=== PATIENT | female | born 1965 | race Caucasian/White ===

== ENCOUNTER 2017-06-12 14:20 | Outpatient (CLI) | payer BC ==
[~2017-06-12 14:20] MED LIST: ISOVUE-370 76%-LOCM 1 ML ONE
== END 2017-06-12 14:21 | disposition home or self-care (01) ==
LOC: BICCT 14:20
PROVIDERS: ATTEND Internal Medicine Hematology & Oncology
DX: C7A.090 Malignant carcinoid tumor of the bronchus and lung (principal); K76.0 Fatty (change of) liver, not elsewhere classified; Z98.890 Other specified postprocedural states
CPT/HCPCS: 71260

== ENCOUNTER 2017-06-21 12:24 | Day surgery (SDC) | payer BC ==
[2017-06-20 10:57] VITALS: BMI 32.5
[~2017-06-21 12:24] MED LIST changes: -ISOVUE-370 76%-LOCM 1 ML ONE; +Lidocaine 1% PF 5 ML VIAL ONE; +Propofol 200 MG/20 ML VIAL ONE
[2017-06-21] MEDS ORDERED: OCTREOTIDE ACETATE IVPB SCH (14:30)
[2017-06-21] MEDS ORDERED: SODIUM CHLORIDE 0.9% IVPB SCH (14:30)
--- NOTE | 2017-06-21 18:43 | OP ---
DATE OF PROCEDURE: 06/21/2017 TITLE OF PROCEDURE: Colonoscopy with biopsy. PREOPERATIVE DIAGNOSES: 1. Colon cancer screening. 2. Intermittent unexplained diarrhea. 3. History of carcinoid of the lung, resected in 2010. POSTOPERATIVE DIAGNOSES: 1. Exam to distal terminal ileum; adequate bowel preparation. 2. Grossly normal terminal ileum. 3. Grossly normal colonic mucosa without overt colitis, biopsied in the transverse colon for histolo gy. 4. Mild sigmoid diverticulosis. 5. Small internal hemorrhoids. 6. Otherwise normal colonoscopy. PROCEDURE IN DETAIL: Written informed consent was obtained. Upon completion of the EGD, the patient was repositioned for the colonoscopy. A digital rectal exam was performed that was unremarkable. A Pentax video colonoscope was inserted through the anal canal and advanced under direct visualization to the cecum. Position in the cecum was verified by clear identification of the ileocecal valve. T he quality of the bowel preparation was adequate. Each colon segment was examined carefully as the c olonoscope was slowly withdrawn from the cecum. The distal terminal ileum appeared normal. The ileo cecal valve, appendiceal orifice and cecum were also normal. No overt colitis was identified. Close inspection was made of the colonic mucosa as the instrument was slowly withdrawn from the cecum. Ra ndom biopsies were obtained in the transverse colon to evaluate for possible microscopic colitis. A retroflexed exam in the rectum demonstrated small internal hemorrhoids that were not actively bleedin g. Additional findings included occasional diverticular orifices in the sigmoid colon that were neit her bleeding nor did they appear infected. The colon was decompressed as the colonoscope was withdra wn from the patient. She was transferred to the day stay surgery area for post-procedure monitoring. There were no immediate complications. RECOMMENDATIONS: 1. Await biopsy results. 2. Ask the patient to call me in 1 week for biopsy results. 3. Follow up with my PA in 4 weeks. 4. Colon cancer screening, given the patient's history, would repeat another colonoscopy in five yea rs. 5. Consider a trial of Imodium 1-2 tablets daily as needed for diarrhea.
--- NOTE | 2017-06-21 19:17 | OP ---
DATE OF PROCEDURE: 06/21/2017 TITLE OF PROCEDURE: Esophagogastroduodenoscopy with biopsy. PREPROCEDURE DIAGNOSES: 1. Left-sided abdominal pain. 2. History of carcinoid of the lung, resected in 2010. 3. Left-sided abdominal pain. POSTPROCEDURE DIAGNOSES: 1. Examination to second portion of duodenum. 2. Small 2 cm sliding hiatal hernia. 3. Otherwise grossly normal appearing esophagus, biopsied lower esophageal mucosa for histology. 4. Mild body gastritis, biopsied. 5. Small scattered sessile polyps in the proximal gastric body, most consistent with benign fundic p olyps, biopsied. 6. Normal duodenum. PROCEDURE IN DETAIL: Written informed consent was obtained. The patient was brought to the endoscop y suite. Total intravenous anesthesia was provided by Dr. Pollack and associates. The patient was pl aced in the left lateral decubitus position. An infusion of Sandostatin 250 mcg was initiated just b efore the start of the procedure and infused slowly over the subsequent 45 minutes. A bite block was inserted into the mouth. A Pentax video diagnostic gastroscope was introduced into the oral cavity and the esophagus was carefully intubated. The gastroscope was advanced under direct visualization t o the second portion of the duodenum. Endoscopic findings revealed a small sliding hiatal hernia abo ut 2 cm in length. The esophageal mucosa proximal to the hiatal hernia appeared grossly normal. Bio psies were obtained for histology at 33 cm. There was no evidence of acute esophageal ulcer or erosi on. The stomach was entered and carefully examined. This included a retroflexed view of the cardia and fundus. The retroflexed exam again demonstrated the small hiatal hernia. The gastric body demon strated mucosal changes consistent with a mild gastritis with a striped erythema and scattered small sessile polyps in the proximal body. The size of the polyps varied from 2 mm to 4 mm. Biopsies were obtained for histology. The polyps were not removed. The endoscopic appearance was consistent with benign fundic polyps. The remainder of the exam of the stomach was unremarkable. The duodenum from the bulb to the second portion was also carefully inspected and appeared normal with grossly normal motility. The stomach was decompressed as the gastroscope was completely removed from the patient. There were no immediate complications. She was repositioned for the colonoscopy. RECOMMENDATIONS: 1. Await biopsy results. 2. Ask the patient to call me in 1 week for biopsy results. 3. Follow up with Gastroenterology in 4 weeks. 4. Await pathology results. 5. May advise the patient to change her ranitidine to a stronger acid suppressive therapy pending pa thology results. 6. May also ask the patient to stop aspirin for a period of 6-8 weeks pending pathology results.
== END 2017-06-21 16:35 | disposition home or self-care (01) ==
LOC: SDC 12:24
PROVIDERS: ATTEND Internal Medicine Gastroenterology
PROC: 0DB68ZX Excision of Stomach, Via Natural or Artificial Opening Endoscopic, Diagnostic (ICD-10-PCS; principal; 2017-06-21)
PROC: 0DB58ZX Excision of Esophagus, Via Natural or Artificial Opening Endoscopic, Diagnostic (ICD-10-PCS; principal; 2017-06-21)
PROC: 0DBL8ZX Excision of Transverse Colon, Via Natural or Artificial Opening Endoscopic, Diagnostic (ICD-10-PCS; principal; 2017-06-21)
DX: K52.89 Other specified noninfective gastroenteritis and colitis (principal); K31.7 Polyp of stomach and duodenum; K21.0 Gastro-esophageal reflux disease with esophagitis; K57.30 Diverticulosis of large intestine without perforation or abscess without bleeding; K64.8 Other hemorrhoids; K29.70 Gastritis, unspecified, without bleeding; K44.9 Diaphragmatic hernia without obstruction or gangrene; K76.0 Fatty (change of) liver, not elsewhere classified; G40.909 Epilepsy, unspecified, not intractable, without status epilepticus; D64.9 Anemia, unspecified; E78.00 Pure hypercholesterolemia, unspecified; J45.909 Unspecified asthma, uncomplicated; I11.0 Hypertensive heart disease with heart failure; I50.9 Heart failure, unspecified; E03.9 Hypothyroidism, unspecified; E06.3 Autoimmune thyroiditis; E11.9 Type 2 diabetes mellitus without complications; Z79.82 Long term (current) use of aspirin; Z79.84 Long term (current) use of oral hypoglycemic drugs; Z79.899 Other long term (current) drug therapy; Z88.0 Allergy status to penicillin; Z88.2 Allergy status to sulfonamides; Z90.49 Acquired absence of other specified parts of digestive tract; Z98.890 Other specified postprocedural states; Z86.010 Personal history of colon polyps
CPT/HCPCS: 36416; 88305; 88312; 88313; J2001; J2354; J2704; J7050

== ENCOUNTER 2018-06-10 09:01 | Outpatient (CLI) | payer BC ==
[2018-06-10] MEDS ORDERED: Iopamidol 370 76% 100 ML VIAL ONE (10:57)
--- NOTE | 2018-06-10 11:29 | CT ---
CT CHEST WITH CONTRAST: Comparison: 06-12-17, CT abdomen/pelvis 12-01-16 History: Pulmonary carcinoid tumor, status post resection. Technique: Multiple contiguous axial images were obtained in a CT of the chest with contrast. Coronal reformats were performed. FINDINGS: Post-surgical changes and scarring are seen in the left thorax. Surgical clips are seen in the left h ilar region. No recurrent pulmonary mass is seen. No hilar or mediastinal lymphadenopathy are seen. N o pneumothorax or pleural effusions are seen. The heart is normal in size without focal cardiac abnormality. No hilar or mediastinal lymphadenopath y are seen. There is fatty infiltration of the liver. Anterior to the gallbladder fossa, there is a hypodense reg ion with hyperdensity in the central. This was not seen on the prior CT from 12-01-16 and the prior ch est CT from 06-12-17 did not extend this far inferiorly. There is diffuse fatty infiltration of the li rony. The other visualized subdiaphragmatic structures are unremarkable. Degenerative changes are seen in the spine. NO suspicious osseous lesions are identified. The chest w all soft tissues are unremarkable. IMPRESSION: 1. There is a new area of hypodensity with central hyperdensity in the liver. This is nonspecific. A CT of the abdomen and pelvis with contrast per liver mass protocol is recommended for further evaluat ion. Metastatic disease must be excluded as this is new. 2. No evidence of intrathoracic metastatic disease or recurrent disease. 3. Fatty liver. POS: [facility]
== END 2018-06-10 09:02 | disposition home or self-care (01) ==
LOC: BICCT 09:01
PROVIDERS: ATTEND Internal Medicine Hematology & Oncology
DX: C7A.090 Malignant carcinoid tumor of the bronchus and lung (principal); J98.4 Other disorders of lung; R05 Cough; K76.0 Fatty (change of) liver, not elsewhere classified; K76.89 Other specified diseases of liver
CPT/HCPCS: 71260; Q9967

== ENCOUNTER 2018-06-18 14:26 | Outpatient (CLI) | payer BC ==
[~2018-06-18 14:26] MED LIST changes: +Iopamidol 370 76% 100 ML VIAL ONE; -Lidocaine 1% PF 5 ML VIAL ONE; -Propofol 200 MG/20 ML VIAL ONE
--- NOTE | 2018-06-18 15:56 | CT ---
CT ABDOMEN WITH AND WITHOUT IV CONTRAST: Date: 06/18/18 HISTORY: New liver abnormality on CT chest. Prior bronchial carcinoid. COMPARISON: Recent CT chest from 06/12/[address] abdomen from 12/01/16. FINDINGS: The irregular shaped, somewhat geographic area of decreased density within the medial segment left li rony lobe abutting the falciform ligament is now entirely visualized. The overall length is 8.2 cm on the coronal images x 4.3 x 2.9 cm diameter on the axial images. The small subtle area of internal den sity is again demonstrated, similar on postcontrast enhanced series to the enhancing portions of the liver. In the abnormality, the liver vessels are not displaced. There is some retraction of the overl apoorva liver capsule medially. Postoperative changes of the right upper quadrant anterior abdominal wall over the area of abnormalit y are again demonstrated. Gallbladder is surgically absent. No free fluid or free air. The pelvis was not imaged. IMPRESSION: The left liver lobe abnormality, as detailed above, does not have mass-like qualities, in that the ve ssels run through it and there is overlying capsular retraction. It has developed since the CT scan f rom 12/01/16 and could represent an interval area of vascular insult to the liver, as many of the eli racteristics are that of an infarct. For further follow-up, CT of the liver could be performed at a later time to evaluate for stability o r resolution. For more aggressive follow-up, radionuclide PET scan could be used to evaluate for hype rmetabolic activity. POS: [facility]
== END 2018-06-18 14:27 | disposition home or self-care (01) ==
LOC: BICCT 14:26
PROVIDERS: ATTEND Internal Medicine Hematology & Oncology
DX: K76.89 Other specified diseases of liver (principal); C7A.090 Malignant carcinoid tumor of the bronchus and lung
CPT/HCPCS: 74170; Q9967

== ENCOUNTER 2018-06-27 09:07 | Outpatient (CLI) | payer BC ==
--- NOTE | 2018-06-27 13:50 | PET ---
PET CT FROM SKULL BASE TO MID THIGH: INDICATION: History of carcinoid tumor. COMPARISON: Prior PET CT dated 11/28/14. CT abdomen with and without contrast dated 06/18/18. CT abdomen and pelv is dated 12/01/16. RADIOPHARMACEUTICAL: 11.7 mCi [id number] IV was utilized. TECHNIQUE: PET CT obtained from the skull base to the mid thighs following IV introduction of the radiopharmaceu tical. CT images were obtained for attenuation correction purposes only. FINDINGS: The biodistribution for the examination appears successful. Head/Neck: No hypermetabolic lymphadenopathy or mass identified. Thorax: No hypermetabolic lymphadenopathy or pulmonary nodule is evident. No hypermetabolic pleural effusion is evident. There are calcified lymph nodes within the left hilar region. Abdomen/Pelvis: Wedge-like areas of heterogeneous density but predominantly hypodense appearance within the left hepa tic lobe, appear similar to the recent comparison CT dated 06/18/18. There is no associated hypermeta bolic activity. Peak activity in this region is 2.2 and the mean activity is 1.92. No hypermetabolic lymphadenopathy is evident. There is some background activity seen within the renal collecting system and bowel, as well as the liver. There is some injection granulomata overlying the gluteal region. Skin/Osseous Structures: No hypermetabolic skin or osseous lesion is identified. IMPRESSION: 1. Wedge-like regions of diminished density within the left hepatic lobe showed no associated hyperm etabolic activity and are most suspicious for wedge-like infarcts. As a conservative measure, follow- up CT evaluation in 6 months would be recommended to document stability and evaluate evolutionary eli nges of the liver. 2. Chronic findings as above. POS: [facility]
== END 2018-06-27 09:08 | disposition home or self-care (01) ==
LOC: PET 09:07
PROVIDERS: ATTEND Internal Medicine Hematology & Oncology
DX: C7A.090 Malignant carcinoid tumor of the bronchus and lung (principal); I89.8 Other specified noninfective disorders of lymphatic vessels and lymph nodes; K76.89 Other specified diseases of liver
CPT/HCPCS: 78815; A9552